=== PATIENT | male | born 1945 | race Caucasian/White ===

== ENCOUNTER 2017-04-08 12:39 | Emergency (ER) | payer SELFPAY ==
[2017-04-08 12:46] VITALS: RESP 18; TEMP 98.3; O2SAT 100
[2017-04-08] MEDS ORDERED: Metoprolol Succinate 50 mg XL Tab PO STA (12:52)
[2017-04-08] MEDS ORDERED: Heparin25000 units/250ml 1/2NS 25,000 UNITS/250 ML BAG IV ONE (12:55)
[2017-04-08 13:00] LABS: BASO # 0.1 K/uL (0.0-0.2); BASO % 0.9 % (0.0-2.0); EOS # 0.1 K/uL (0.0-0.7); EOS % 0.8 % (0.0-4.0); HEMOGLOBIN 12.8 g/dL (12.0-18.0); LYMPH # 1.2 K/uL (1.0-4.3); LYMPH % 8.6 % (20.0-40.0); MEAN CELL VOLUME 86.4 fl (80.0-94.0); MEAN CORPUSCULAR HEMOGLOBIN 28.7 pg (27.0-31.0); MEAN CORPUSCULAR HGB CONC 33.2 g/dL (33.0-37.0); MEAN PLATELET VOLUME 8.6 fl (7.2-11.7); MONO # 0.6 K/uL (0.0-0.8); MONO % 4.2 % (0.0-10.0); NEUT # 11.5 K/uL (1.8-7.0); NEUT % 85.5 % (50.0-75.0); NRBC % 0.1 % (0.0-0.0); PLATELET COUNT 203 K/uL (130-400); RBC 4.46 Mil/uL (4.40-5.90); RED CELL DISTRIBUTION WIDTH 13.5 % (11.5-14.5); WHITE BLOOD COUNT 13.4 K/uL (4.8-10.8)
[2017-04-08] MEDS ORDERED: Heparin 25,000units in D5W 25,000 UNITS/250 ML BAG IV SCH (13:00)
--- NOTE | 2017-04-08 13:02 | ED PDOC ---
HPI: Chest Pain Time Seen by Provider: 04/08/17 12:45 Chief Complaint (Nursing): Chest Pain Chief Complaint (Provider): Chest pain History Per: Patient History/Exam Limitations: no limitations Onset/Duration Of Symptoms: Hrs (1) Current Symptoms Are (Timing): Still Present Additional Complaint(s): Pt. visiting from [place] and had chest pain for 1 hr. Denies any dyspnea, weakness, headaches, dizziness, numbness, tingles. No leg pain. No fever, cough. Past Medical History Reviewed: Nursing Documentation, Vital Signs Vital Signs: Last Vital Signs Temp 98.3 F 04/08/17 12:45 Pulse 123 H 04/08/17 12:45 Resp 18 04/08/17 12:45 BP 162/111 H 04/08/17 12:45 Pulse Ox 100 04/08/17 13:09 - Medical History PMH: Diabetes, HTN - Surgical History Surgical History: No Surg Hx - Family History Family History: States: Unknown Family Hx - Living Arrangements Living Arrangements: With Family - Social History Current smoker - smoking cessation education provided: No Alcohol: None Drugs: Denies - Home Medications Home Medications: Ambulatory Orders Medication Instructions Recorded Atorvastatin [Lipitor] 5 mg PO DAILY 04/08/17 Glimepiride [amaRYL] 2 mg PO BID 04/08/17 Home Med [Home Med] 1 tab PO DAILY 04/08/17 Home Med [Home Med] 2 mg PO DAILY 04/08/17 Home Med [Home Med] 10 mg PO DAILY 04/08/17 Home Med [Home Med] 15 mg PO DAILY 04/08/17 Home Med [Home Med] 50 mg PO DAILY 04/08/17 hydrOXYzine HCl [Atarax] 25 mg PO DAILY 04/08/17 - Allergies Allergies/Adverse Reactions: Allergies Allergy/AdvReac Type Severity Reaction Status Date / Time No Known Allergies Allergy Verified 04/08/17 12:41 Review of Systems ROS Statement: Except As Marked, All Systems Reviewed And Found Negative Cardiovascular: Positive for: Chest Pain Physical Exam - Reviewed Nursing Documentation Reviewed: Yes Vital Signs Reviewed: Yes - Physical Exam Appears: Positive for: Uncomfortable Head Exam: Positive for: ATRAUMATIC, NORMAL INSPECTION, NORMOCEPHALIC Skin: Positive for: Normal Color, Warm, DRY Eye Exam: Positive for: EOMI, Normal appearance, PERRL ENT: Positive for: Normal ENT Inspection Neck: Positive for: Normal, Painless ROM Cardiovascular/Chest: Positive for: Tachycardia. Negative for: Edema Respiratory: Positive for: CNT, Normal Breath Sounds Gastrointestinal/Abdominal: Positive for: Normal Exam, Bowel Sounds, Soft. Negative for: Tenderness Back: Positive for: Normal Inspection. Negative for: L CVA Tenderness, R CVA Tenderness Extremity: Positive for: Normal ROM. Negative for: Tenderness, Pedal Edema Neurologic/Psych: Positive for: Alert, test architect II-XII, Oriented. Negative for: Motor/Sensory Deficits - Laboratory Results Result Diagrams: 04/08/17 12:50 - ECG ECG: Positive for: Interpreted By Me, Viewed By Me Interpretation Of Abn EKG: STEMI inferior and lateral O2 Sat by Pulse Oximetry: 100 Pulse Ox Interpretation: Normal - Progress ED Course And Treament: 1245: Spoke with Dr. Hammer who was made aware of findings and presentation. He saw the EKG. Accepted and code heart called. Wants ASA 325mg, plavix 600mg , heparin 5000 units and 100/hr, lipitor 80mg, and metoprolol 50mg po. 1305: Stable. Pain controlled. 1309: Spoke with Dr. Fuentes. Will take case for Dr. Fuentes. Wants to hold heparin drip. Bolus already in. 2ml of drip in and stopped. 1316: EMS present and taking to [place]. Stable. Pain free. - Critical Care Total Time (In Min): 30 Documented Critical Care: Time excludes all time spent performint seperately billable procedures Disposition - Clinical Impression Clinical Impression: STEMI (ST elevation myocardial infarction) - Patient ED Disposition Is Patient to be Admitted: Yes - Disposition Disposition: Other Institution Disposition Time: 13:05 Condition: CRITICAL
[2017-04-08 13:16] LABS: BLOOD UREA NITROGEN 22 mg/dl (9-20); CALCIUM 9.2 mg/dL (8.4-10.2); GFR AFRICAN-AMERICAN > 60; GFR NON-AFRICAN AMERICAN 50
[2017-04-08 13:18] LABS: PARTIAL THROMBOPLASTIN TIME 35.7 Seconds (25.6-37.1); PROTHROMBIN TIME 10.9 Seconds (9.8-13.1)
[2017-04-08] MEDS ORDERED: Heparin25000 units/250ml 1/2NS 25,000 UNITS/250 ML BAG IV SCH (13:30)
[2017-04-08 13:31] VITALS: BP 172/103; PULSE 126
[2017-04-08 14:14] LABS: LYMPHOCYTE 6 % (20-50); MONOCYTE 3 % (0-10); NEUTROPHIL 91 % (42-75); TOTAL CELLS COUNTED 100
[2017-04-08 14:15] LABS: PLATELET ESTIMATE NORMAL (NORMAL)
--- NOTE | 2017-04-09 10:56 | CARD ---
APPROVED REPORT EKG Measurement Heart [id number] <Conclusion> Sinus tachycardia Possible Left atrial enlargement Inferior-posterior infarct, possibly acute Lateral injury pattern ACUTE [place] / STEMI Consider right ventricular involvement in acute inferior infarct Abnormal ECG
== END 2017-04-08 13:05 | disposition short-term general hospital (02) ==
LOC: H.ER 12:39
DX: I21.3 ST elevation (STEMI) myocardial infarction of unspecified site (principal); E11.9 Type 2 diabetes mellitus without complications; I10 Essential (primary) hypertension
CPT/HCPCS: 80048; 82948; 84484; 85025; 85610; 85730; 93005; 96374; 99282; J1644